=== PATIENT | female | born 1975 | race Caucasian/White ===

== ENCOUNTER → 2018-01-26 | Outpatient (CLI) | payer BC ==
[~2018-01-26] MED LIST: ADVIL MIGRAINE200 M1 PO; ALBUTEROL2.5 MG/31 INH; AZITHROMYCIN 2250 MG PO; EXCEDRIN MIGRA1 EAC1 PO; HYDROCHLOROTHIA25 M2 PO; LEVAQUIN 500 M500 M2 PO; LISINOPRIL20 MG PO; MUCINEX TA600 MG/TA2 PO; MUCINEX1200 MG PO; NEBULIZER MISCELL; PHENERGAN 25 MG25 M1 PO; PREDNISONE 10 M10 MG PO; PREDNISONE10 MG PO; PREDNISONE50 MG PO; PROMETHAZINE-C120 ML PO; PULMICORT0.5 MG/22 INH; SINGULAIR 10 MG10 M1 PO; TESSALON PERLE100 MG PO; ULTRAM 50MG TAB50 MG PO; VENTOLIN HFA 1818 GM INH
--- NOTE | 2018-01-26 15:04 | 2DMMODE ---
[place] [address] 2 D/M-MODE ECHOCARDIOGRAM Name: RUFUS VALLE Room: [facility]#: [id number] Admission: 01/26/18 Attend Phys: Femi Avalos Discharge: Date of : 71 Date of Service: 01/26/18 1503 Report #: [id number] THIS REPORT FOR: //name// APPROVED REPORT Study performed: 01/26/2018 14:03:18 EXAM: Comprehensive 2D, Doppler, and color-flow Echocardiogram Patient Location: Out-Patient Status: routine BSA: 2.47 HR: 80 bpm BP: 180/88 mmHg Other Information Study Quality: Good Indications Peripheral Edema 2D Dimensions LVEF(%): 83.38 (>50%) IVSd: 13.32 (7-11mm) LVOT Diam: 20.11 (18-24mm) LVDd: 50.86 mm PWd: 12.08 (7-11mm) Ascending Ao: 35.85 (22-36mm) LVDs: 24.13 (25-40mm) Aortic Root: 28.58 mm Richardson's LVEF: 83.38 % Volumes Left Atrial Volume (Systole) LA ESV Index: 11.20 mL/m2 Aortic Valve AoV Peak Jaime.: 1.55 m/s AO Peak Gr.: 9.64 mmHg LVOT Max P.83 mmHg AO Mean Gr.: 5.01 mmHg LVOT Mean P.88 mmHg LVOT Max V: 1.21 m/s AO V2 VTI: 28.52 cm LVOT Mean V: 0.78 m/s BRETT (VTI): 2.64 cm2 LVOT V1 VTI: 23.67 cm Mitral Valve E/A Ratio: 0.84 MV Decel. Time: 298.36 [place] [address] 2 D/M-MODE ECHOCARDIOGRAM Name: RUFUS VALLE Room: [facility]#: [id number] Admission: 01/26/18 Attend Phys: Femi Avalos Discharge: Date of : 71 Date of Service: 01/26/18 1503 Report #: [id number] MV E Max Jaime.: 0.60 m/s MV PHT: 86.52 ms MVA (PHT): 2.54 cm2 TDI E/Lateral E': 4.62 E/Medial E': 4.29 Medial E' Jaime.: 0.14 m/s Lateral E' Jaime.: 0.13 m/s Pulmonary Valve PV Peak Jaime.: 1.27 m/s PV Peak Gr.: 6.49 mmHg Tricuspid Valve TR Peak Gr.: 31.61 mmHg RVSP: 36.61 mmHg Left Ventricle The left ventricle is normal size. There is normal LV segmental wall motion. There is normal left ventricular wall thickness. Left ventricular systolic function is normal. LVEF is 60-65%. Grade I - abnormal relaxation pattern. Right Ventricle The right ventricle is normal size. The right ventricular systolic function is normal. Atria The left atrium size is normal. The right atrium size is normal. Aortic Valve The aortic valve is normal in structure. No aortic regurgitation is present. There is no aortic valvular stenosis. Mitral Valve The mitral valve is normal in structure. There is no mitral valve regurgitation noted. No evidence of mitral valve stenosis. Tricuspid Valve The tricuspid valve is normal in structure. Mild tricuspid regurgitation. The RVSP is _36.6 mmHg. Pulmonic Valve The pulmonary valve is normal in structure. There is no pulmonic valvular regurgitation[place] [address] 2 D/M-MODE ECHOCARDIOGRAM Name: RUFUS VALLE Room: [facility]#: [id number] Admission: 01/26/18 Attend Phys: Femi Avalos Discharge: Date of : 71 Date of Service: 01/26/18 1503 Report #: [id number] The aortic root is normal in size. IVC is normal in size and collapses with >50% inspiration Pericardium There is no pericardial effusion. <Conclusion> The left ventricle is normal size. There is normal left ventricular wall thickness. Left ventricular systolic function is normal. LVEF is 60-65%. Grade I - abnormal relaxation pattern. Mild tricuspid regurgitation. The RVSP is _36.6 mmHg. <ELECTRONICALLY SIGNED> By: Gerardo Valladares MD, FACC 01/26/18 1503 1503 1503 Gerardo Valladares MD, FACC /INF
== END ==
LOC: M.CRD 13:47
DX: I07.1 Rheumatic tricuspid insufficiency (principal)

== ENCOUNTER 2018-03-01 16:59 | Emergency (ER) | payer BC ==
[~2018-03-01] VITALS: Ht 167.6 cm; Wt 124.7 kg
[~2018-03-01 16:59] MED LIST changes: -HYDROCHLOROTHIA25 M2 PO; -LISINOPRIL20 MG PO
[2018-03-01] MEDS ORDERED: LISINOPRIL20 MG PO ×2 (17:08→18:04)
[2018-03-01] MEDS ORDERED: HYDROCHLOROTHIA25 M2 PO (17:08)
[2018-03-01 17:34] LABS: ABSOLUTE BASOPHILS 0.1 thou/uL (0.0-0.2); ABSOLUTE EOSINOPHILS 0.3 thou/uL (0.0-0.7); ABSOLUTE LYMPHOCYTES 2.2 thou/uL (0.8-5.3); ABSOLUTE MONOCYTES 0.5 thou/uL (0.0-1.2); ABSOLUTE NEUTROPHILS 8.2 thou/uL (1.6-8.1); BASOPHILS 0.8 %; EOSINOPHILS 2.3 %; HEMATOCRIT 43.5 % (37.0-47.0); HEMOGLOBIN 14.5 gm/dL (12.0-15.0); LYMPHOCYTES 19.6 %; MCH 29.7 pg (26.0-34.0); MCHC 33.4 g/dL (28.0-37.0); MCV 88.9 fL (80.0-100.0); MONOCYTES 4.8 %; MPV 8.4 fl. (7.2-11.1); NUCLEATED RBCS 0 /100WBC; PLATELET COUNT* 255 thou/uL (150-400); POLYS 72.5 %; RDW-CV 14.1 % (10.5-14.5); WBC 11.3 thou/uL (4.0-11.0)
[2018-03-01 17:47] LABS: ANION GAP 7 mmol/L (7-16); BUN 17 mg/dL (7-18); CALCIUM 9.4 mg/dL (8.5-10.1); CHLORIDE 101 mmol/L (98-107); CO2 30 mmol/L (21-32); CREATININE 0.8 mg/dL (0.6-1.3); GLUCOSE 104 mg/dL (70-99); POTASSIUM 4.1 mmol/L (3.5-5.1); SODIUM 138 mmol/L (136-145)
[2018-03-01 17:48] LABS: PROTIME 9.7 Seconds (9.20-11.50)
[2018-03-01 17:56] LABS: ALBUMIN 3.8 g/dL (3.4-5.0); ALKALINE PHOSPHATASE 132 U/L (46-116); LIPASE 106 U/L (73-393); NT-PRO BRAIN NAT PEPTIDE 16 pg/mL (<300); SGOT 22 U/L (15-37); SGPT 44 U/L (30-65); TOTAL BILIRUBIN 0.5 mg/dL (<0.1-1.0); TOTAL PROTEIN 8.1 g/dL (6.4-8.2); TROPONIN-I LEVEL <0.06 ng/mL (<0.06)
[2018-03-01 18:15] VITALS: BP 131/82
--- NOTE | 2018-03-02 13:57 | EKG ---
[place] [address] ELECTROCARDIOGRAM REPORT Name: RUFUS VALLE Room: [facility]#: [id number] Admission: 03/01/18 Attend Phys: Discharge: 03/01/18 Date of : 71 Report #: [id number] THIS REPORT FOR: //name// [facility] ED Test Date: 2018-03-01 Test Time: 17:05:53 Pat Name: RUFUS VALLE Department: Room: Gender: F [employer]: : 1975 Requested By: Demario Franklin Order Number: [id number] MD: Mohsen Padilla Measurements Intervals [place] Rate: 94 P: 34 GA: 141 QRS: 23 QRSD: 95 T: 1 QT: 341 QTc: 427 Interpretive Statements Sinus rhythm Baseline wander in lead(s) V3,V4,V6 Compared to ECG 09/14/2017 17:29:10 No significant changes Electronically Signed On 03-02-2018 13:57:17 CDT by Mohsen Padilla [email or web address] <ELECTRONICALLY SIGNED> By: Mohsen Padilla MD, [facility] 03/02/18 1357 04 04 Mohsen Padilla MD, FACC /EPI
== END 2018-03-01 18:16 | disposition home or self-care (01) ==
LOC: M.ERS 16:59
PROVIDERS: Emergency Medicine
DX: R07.9 Chest pain, unspecified (principal); Z90.710 Acquired absence of both cervix and uterus; Z90.49 Acquired absence of other specified parts of digestive tract

== ENCOUNTER → 2019-05-25 | Outpatient (CLI) | payer OTHER ==
[~2019-05-25] MED LIST changes: +HYDROCHLOROTHIA25 M2 PO; +LISINOPRIL20 MG PO
== END ==
LOC: M.CT 15:31
DX: E27.8 Other specified disorders of adrenal gland (principal); N39.0 Urinary tract infection, site not specified; J32.9 Chronic sinusitis, unspecified; E66.01 Morbid (severe) obesity due to excess calories; I10 Essential (primary) hypertension; Z68.43 Body mass index [BMI] 50.0-59.9, adult; Z79.899 Other long term (current) drug therapy; Z90.49 Acquired absence of other specified parts of digestive tract; Z90.710 Acquired absence of both cervix and uterus; Z87.891 Personal history of nicotine dependence

== ENCOUNTER → 2019-06-02 | Outpatient (CLI) | payer OTHER ==
[2019-06-02 14:09] LABS: CREATININE 0.8 mg/dL (0.6-1.3)
[2019-06-02 15:52] VITALS: BP 165/98
== END ==
LOC: M.ULTRA 13:47 → M.CT 14:30
PROVIDERS: Family Medicine
DX: N83.201 Unspecified ovarian cyst, right side (principal); N94.9 Unspecified condition associated with female genital organs and menstrual cycle; E27.9 Disorder of adrenal gland, unspecified; Z90.721 Acquired absence of ovaries, unilateral; Z86.79 Personal history of other diseases of the circulatory system